=== PATIENT | male | born 1940 | race Two or more races ===

== ENCOUNTER 2017-05-31 16:15 | Inpatient (IN) | payer MEDICARE, MEDICAID ==
[~2017-05-31] VITALS: Ht 160 cm; Wt 47.7 kg
[2017-05-31 15:00] VITALS: BP 119/74
[2017-05-31] MEDS ORDERED: FERR-58 PO (17:08)
[2017-05-31] MEDS ORDERED: CYAN10006 IM (17:08)
[2017-05-31] MEDS ORDERED: D-ME118S12 PO (17:08)
[2017-05-31] MEDS ORDERED: MONT10TA22 PO (17:08)
[2017-05-31] MEDS ORDERED: FOLI1TAB16 PO (17:08)
[2017-05-31] MEDS ORDERED: SPIR25TA4 PO (17:08)
[2017-05-31] MEDS ORDERED: SACU1TAB PO (17:08)
[2017-05-31] MEDS ORDERED: AMLO5TAB2 PO (17:08)
[2017-05-31] MEDS ORDERED: CARV3.122 PO (17:08)
[2017-05-31] MEDS ORDERED: RAMI5CAP PO (17:08)
[2017-05-31] MEDS ORDERED: LEVO50TA8 PO (17:08)
[2017-05-31] MEDS ORDERED: POTA8TAB8 PO (17:08)
[2017-05-31] MEDS ORDERED: ASPI-991 PO (17:08)
[2017-05-31] MEDS ORDERED: ROSU10TA PO (17:08)
[2017-05-31] MEDS ORDERED: BUDE10.2 IH (17:08)
[2017-05-31] MEDS ORDERED: MEGE400O PO (17:08)
[2017-05-31] MEDS ORDERED: TICA90TA PO (17:08)
[2017-05-31] MEDS ORDERED: ACETAMINOPHEN 325 MG TABLET PO PRN (18:00)
[2017-05-31] MEDS ORDERED: ONDANSETRON HCL/PF 4 MG/2 ML VIAL IVP PRN (18:00)
[2017-05-31] MEDS ORDERED: Z GUARD REMEDY 2 OZ OINT TP PRN (18:00)
[2017-05-31] MEDS ORDERED: [UNRECOGNIZED DRUG - OTHER] PO PRN (18:00)
[2017-05-31] MEDS ORDERED: HYDROCODONE/APAP 5/325MG 1 EACH TABLET PO PRN (18:00)
[2017-05-31] MEDS ORDERED: ZOLPIDEM TARTRATE 5 MG TABLET PO PRN (18:00)
[2017-05-31] MEDS ORDERED: MAGNESIUM HYDROXIDE 30 ML UDC PO PRN (18:00)
[2017-05-31] MEDS ORDERED: D METHORPHAN HB PO PRN (18:00)
[2017-05-31] MEDS ORDERED: PROMETH HCL PO PRN (18:00)
[2017-05-31] MEDS ORDERED: PROMETHAZINE HCL SYRUP 6.25 MG/5 ML UDC PO PRN (18:30)
[2017-05-31] MEDS ORDERED: GUAIFENESIN/D-METHORPHAN HB 5 ML UDC PO PRN (18:30)
[2017-05-31] MEDS ORDERED: Budesonide/Formoterol Fumarate (Symbicort 160-4.5 Mcg INH SCH (18:30)
[2017-05-31 20:00] VITALS: BP 101/57
[2017-05-31] MEDS: ATORVASTATIN 10 MG TABLET PO SCH (21:30)
[2017-05-31] MEDS: FUROSEMIDE 40 MG/4 ML VIAL IV SCH (21:30)
[2017-06-01] VITALS (7 sets, daily range): BP systolic 97–129; BP diastolic 63–76
[2017-06-01 06:45] LABS: BASOPHILS % (AUTO) 0.1 % (0.0-2.0); EOSINOPHILS # (AUTO) 0.1 /CMM (0.0-0.7); EOSINOPHILS % (AUTO) 0.9 % (0.0-6.0); HEMATOCRIT 35 % (39-51); HEMOGLOBIN 10.9 g/dL (13.5-17.5); LYMPHOCYTES # (AUTO) 2.3 /CMM (0.8-4.8); MEAN CORPUSCULAR HEMOGLOBIN 26 PG (26.0-33.0); MEAN CORPUSCULAR HGB CONC 31 g/dl (31.0-36.0); MEAN CORPUSCULAR VOLUME 84 fL (80-96); MONOCYTES # (AUTO) 0.6 /CMM (0.1-1.30); MONOCYTES % (AUTO) 6.1 % (2.0-12.0); NEUTROPHILS # (AUTO) 6.6 /CMM (1.8-8.9); NEUTROPHILS % (AUTO) 68.9 % (43.0-81.0); PLATELET COUNT (AUTO) 363 /CMM (150-450); RDW COEFFICIENT OF VARIATION 19.4 (11.5-15.0); RED BLOOD CELL COUNT(AUTO) 4.14 MIL/uL (4.5-6.0); WHITE BLOOD COUNT (AUTO) 9.6 K/uL (4.3-11.0)
[2017-06-01 07:10] LABS: CALCIUM, SERUM 8.9 mg/dL (8.5-10.1); CARBON DIOXIDE 24 mmol/L (21-32); CHLORIDE 102 mmol/L (98-107); CREATININE 1.2 mg/dL (0.6-1.3); GLUCOSE 108 mg/dL (74-106); MAGNESIUM 1.9 mg/dL (1.8-2.4); PHOSPHORUS 4.2 mg/dL (2.5-4.9); POTASSIUM 3.7 mmol/L (3.5-5.1); SODIUM SERUM 139 mmol/L (136-145); UREA NITROGEN, BLOOD 23 mg/dL (7-18)
[2017-06-01] MEDS: POTASSIUM CHLORIDE 10 MEQ TABLET.SA PO SCH (08:41)
[2017-06-01] MEDS: MONTELUKAST SODIUM (10MG) 10 MG TABLET PO SCH (08:41)
[2017-06-01] MEDS: FOLIC ACID 1 MG TABLET PO SCH (08:41)
[2017-06-01] MEDS: FUROSEMIDE 40 MG/4 ML VIAL IV SCH ×5 (08:41→21:13)
[2017-06-01] MEDS: ASPIRIN EC 81 MG TABLET.DR PO SCH (08:42)
[2017-06-01] MEDS: CARVEDILOL 3.125 MG TABLET PO SCH ×2 (08:42→16:56)
[2017-06-01] MEDS: LEVOTHYROXINE SODIUM 50 MCG TABLET PO SCH (08:42)
[2017-06-01] MEDS: FERROUS SULFATE (325 MG) 325 MG/TAB TABLET PO SCH (08:42)
[2017-06-01] MEDS ORDERED: Medication Not On Formulary EA (Potassium Chloride 8 MEQ) PO SCH (09:00)
[2017-06-01] MEDS ORDERED: Medication Not On Formulary EA (Rosuvastatin Calcium (Crestor) 10 MG) PO SCH (09:00)
[2017-06-01 09:09] LABS: TROPONIN I 0.039 ng/mL (0.00-0.056)
[2017-06-01] MEDS: AMLODIPINE BESYLATE 5 MG TABLET PO SCH (09:26)
[2017-06-01] MEDS: RAMIPRIL 5 MG CAPSULE PO SCH (09:27)
[2017-06-01] MEDS: SPIRONOLACTONE 25 MG TABLET PO SCH (09:27)
[2017-06-01] MEDS: POTASSIUM CHLORIDE 20 MEQ TAB.PRT.SR PO SCH ×3 (09:36→13:55)
[2017-06-01 09:40] LABS: THYROID STIMULATING HORMONE 6.148 uIU/mL (0.358-3.74)
[2017-06-01 09:42] LABS: ALBUMIN 2.4 g/dL (3.4-5.0); BILIRUBIN,DIRECT 0.1 mg/dL (0.0-0.2); BILIRUBIN,TOTAL 0.6 mg/dL (0.2-1.0); TOTAL PROTEIN, SERUM 7.4 g/dL (6.4-8.2)
[2017-06-01] MEDS ORDERED: TICAGRELOR 90 MG TABLET PO ONE (12:00)
[2017-06-01] MEDS: MAG HYDROX/AL HYDROX/SIMETH 30 ML UDC PO PRN ×2 (15:00→21:08)
[2017-06-01] MEDS: TICAGRELOR 90 MG PO SCH (16:57)
[2017-06-01] MEDS ORDERED: TICAGRELOR 90 MG TABLET PO SCH (17:00)
[2017-06-01] MEDS: ATORVASTATIN 10 MG TABLET PO SCH (21:14)
[2017-06-02] VITALS (9 sets, daily range): BP systolic 89–121; BP diastolic 51–69
[2017-06-02 06:17] LABS: ALANINE AMINOTRANSFERASE 19 U/L (12-78); ALBUMIN 2.4 g/dL (3.4-5.0); ALKALINE PHOSPHATASE 104 U/L (46-116); ASPARTATE AMINOTRANSFERASE 21 U/L (15-37); BILIRUBIN,TOTAL 0.8 mg/dL (0.2-1.0); CALCIUM, SERUM 9.3 mg/dL (8.5-10.1); CARBON DIOXIDE 29 mmol/L (21-32); CHLORIDE 100 mmol/L (98-107); CREATININE 1.1 mg/dL (0.6-1.3); GLUCOSE 98 mg/dL (74-106); MAGNESIUM 1.9 mg/dL (1.8-2.4); POTASSIUM 3.5 mmol/L (3.5-5.1); SODIUM SERUM 139 mmol/L (136-145); TOTAL PROTEIN, SERUM 7.7 g/dL (6.4-8.2); UREA NITROGEN, BLOOD 22 mg/dL (7-18)
[2017-06-02 06:59] LABS: BASOPHILS % (AUTO) 0.1 % (0.0-2.0); EOSINOPHILS # (AUTO) 0.1 /CMM (0.0-0.7); EOSINOPHILS % (AUTO) 1.6 % (0.0-6.0); HEMATOCRIT 36 % (39-51); LYMPHOCYTES # (AUTO) 1.9 /CMM (0.8-4.8); LYMPHOCYTES % (AUTO) 20.7 % (20.0-44.0); MEAN CORPUSCULAR HEMOGLOBIN 26 PG (26.0-33.0); MEAN CORPUSCULAR HGB CONC 30 g/dl (31.0-36.0); MEAN CORPUSCULAR VOLUME 84 fL (80-96); MONOCYTES # (AUTO) 0.4 /CMM (0.1-1.30); NEUTROPHILS # (AUTO) 6.5 /CMM (1.8-8.9); NEUTROPHILS % (AUTO) 72.6 % (43.0-81.0); PLATELET COUNT (AUTO) 368 /CMM (150-450); RDW COEFFICIENT OF VARIATION 20.2 (11.5-15.0); RED BLOOD CELL COUNT(AUTO) 4.32 MIL/uL (4.5-6.0)
[2017-06-02] MEDS: LEVOTHYROXINE SODIUM 50 MCG TABLET PO SCH (07:40)
[2017-06-02] MEDS: TICAGRELOR 90 MG PO SCH ×2 (08:13→16:46)
[2017-06-02] MEDS: FOLIC ACID 1 MG TABLET PO SCH (08:13)
[2017-06-02] MEDS: POTASSIUM CHLORIDE 10 MEQ TABLET.SA PO SCH (08:13)
[2017-06-02] MEDS: FERROUS SULFATE (325 MG) 325 MG/TAB TABLET PO SCH (08:14)
[2017-06-02] MEDS: SPIRONOLACTONE 25 MG TABLET PO SCH (08:14)
[2017-06-02] MEDS: MONTELUKAST SODIUM (10MG) 10 MG TABLET PO SCH (08:14)
[2017-06-02] MEDS: ASPIRIN EC 81 MG TABLET.DR PO SCH (08:14)
[2017-06-02] MEDS: FUROSEMIDE 40 MG/4 ML VIAL IV SCH ×2 (08:15→21:00)
[2017-06-02] MEDS: CARVEDILOL 3.125 MG TABLET PO SCH ×2 (08:28→16:48)
[2017-06-02] MEDS: AMLODIPINE BESYLATE 5 MG TABLET PO SCH (08:28)
[2017-06-02] MEDS: RAMIPRIL 5 MG CAPSULE PO SCH (08:29)
[2017-06-02] MEDS ORDERED: SOD FERRIC GLUC 125 MG in IV NS 0.9% 100 ML IV ONE (09:30)
[2017-06-02 09:57] LABS: TROPONIN I 0.039 ng/mL (0.00-0.056)
[2017-06-02 10:20] LABS: EOSINOPHILS % (MANUAL) 2 % (0-4); LYMPHOCYTES % (MANUAL) 19 % (16-48); MONOCYTES % (MANUAL) 5 % (0-11.0); NEUTROPHILS % (MANUAL) 74 (42-76)
[2017-06-02] MEDS: ATORVASTATIN 10 MG TABLET PO SCH (21:49)
[2017-06-03] VITALS: BP 90/61
[2017-06-03 04:00] VITALS: BP 95/52
[2017-06-03 04:26] VITALS: BP 95/52
[2017-06-03 07:16] VITALS: BP 94/65
[2017-06-03] MEDS: LEVOTHYROXINE SODIUM 50 MCG TABLET PO SCH (07:49)
[2017-06-03] MEDS: FUROSEMIDE 40 MG/4 ML VIAL IV SCH (08:22)
[2017-06-03] MEDS: ASPIRIN EC 81 MG TABLET.DR PO SCH (08:30)
[2017-06-03] MEDS: FOLIC ACID 1 MG TABLET PO SCH (08:30)
[2017-06-03] MEDS: MONTELUKAST SODIUM (10MG) 10 MG TABLET PO SCH (08:30)
[2017-06-03] MEDS: FERROUS SULFATE (325 MG) 325 MG/TAB TABLET PO SCH (08:30)
[2017-06-03] MEDS: POTASSIUM CHLORIDE 10 MEQ TABLET.SA PO SCH (08:30)
[2017-06-03] MEDS: SPIRONOLACTONE 25 MG TABLET PO SCH (08:36)
[2017-06-03] MEDS: TICAGRELOR 90 MG PO SCH (08:36)
[2017-06-03] MEDS: RAMIPRIL 5 MG CAPSULE PO SCH (08:38)
[2017-06-03] MEDS: CARVEDILOL 3.125 MG TABLET PO SCH (08:39)
[2017-06-03 08:40] VITALS: BP 94/66
[2017-06-03] MEDS: AMLODIPINE BESYLATE 5 MG TABLET PO SCH (08:40)
[2017-06-05] MEDS ORDERED: CYANOCOBALAMIN 1,000 MCG/ML VIAL IM SCH (09:00)
== END 2017-06-03 15:10 | disposition home or self-care (01) | DRG 291 ==
LOC: TELE 16:44 → MED 06-03 09:18
PROVIDERS: ADMIT Internal Medicine; ATTEND Internal Medicine
DX: I11.0 Hypertensive heart disease with heart failure (principal); J96.21 Acute and chronic respiratory failure with hypoxia; E46 Unspecified protein-calorie malnutrition; Z68.1 Body mass index [BMI] 19.9 or less, adult; E88.09 Other disorders of plasma-protein metabolism, not elsewhere classified; D63.8 Anemia in other chronic diseases classified elsewhere; E03.9 Hypothyroidism, unspecified; E78.5 Hyperlipidemia, unspecified; I25.10 Atherosclerotic heart disease of native coronary artery without angina pectoris; Z95.1 Presence of aortocoronary bypass graft; J44.9 Chronic obstructive pulmonary disease, unspecified; I50.23 Acute on chronic systolic (congestive) heart failure
CPT/HCPCS: 36415; 71010-TC; 80048-TC; 80053-TC; 80061-TC; 80076-TC; 82306; 82728-TC; 83540-TC; 83735-TC; 84100-TC; 84439-TC; 84443-TC; 84484-TC; 85025-TC; 87081-TC; 93307-TC; A6402; J1940; J2916; J7030; Q0169